=== PATIENT | female | born 1945 | race Caucasian/White ===

== ENCOUNTER → 2023-01-12 08:53 | Outpatient (CLI) | payer MEDICARE, SELFPAY ==
[2023-01-12 11:09] LABS: Add Manual Diff / Slide Review NO; Basophils Absolute Auto 100 /uL (0-100); Basophils Percent Auto 0.7 % (0-2); Eosinophils Absolute Auto 100 /uL (0-450); Eosinophils Percent Auto 1.8 % (2-4); Hematocrit 38.1 % (36-46); Hemoglobin 12.9 g/dL (12.0-16.0); Lymphocytes Absolute Auto 1700 /uL (1100-4500); Lymphocytes Percent Auto 22.5 % (25-40); Mean Corpuscular Volume 91.4 fL (80-100); Monocytes Absolute Auto 600 /uL (0-900); Monocytes Percent Auto 8.1 % (3-14); Neutrophils Absolute Auto 4900 /uL (1500-7000); Neutrophils Percent Auto 66.9 % (50-75); Platelet Count 220 X10^3/uL (150-400); Red Blood Cell Count 4.17 X10^6/uL (4.0-5.2); Red Cell Distribution Width 13.4 % (11.6-14.8); White Blood Cell Count 7.4 X10^3/uL (4.5-11.0)
[2023-01-12 11:28] LABS: BUN Creatinine Ratio 19.3 (6-22); Blood Urea Nitrogen 17 mg/dL (7-17); Calcium 9.2 mg/dL (8.4-10.2); Carbon Dioxide 28 mmol/L (22-32); Chloride 99 mmol/L (98-107); Estimated Glomerular Filt Rate > 60 mL/min (>60); Glucose 78 mg/dL (80-110); HEMOLYSIS < 15 (0-50); Potassium 4.6 mmol/L (3.4-5.1); Sodium 136 mmol/L (137-145)
== END ==
PROVIDERS: PCP Family Medicine; Referring Provider Orthopaedic Surgery; Visit Provider Orthopaedic Surgery
DX: Z01.818 Encounter for other preprocedural examination (principal); M25.561 Pain in right knee; Z01.812 Encounter for preprocedural laboratory examination
CPT/HCPCS: 36415; 80048; 85025; 93005

== ENCOUNTER 2023-02-11 06:25 | Day surgery (SDC) | payer MEDICARE, SELFPAY ==
[2023-02-03 08:52] VITALS: BMI 23.1
[2023-02-11] VITALS (13 sets, daily range): BP systolic 95–141; BP diastolic 57–80; PULSE 66–102; RESP 12–25; TEMP 36.2–36.6; O2SAT 92–100; BMI 23.1
--- NOTE | 2023-02-11 06:00 | DI.RAD.S_ITS ---
PROCEDURE: XR KNEE RT 1TO2V INDICATIONS: prosthesis placement TECHNIQUE: 2 view(s) of the knee acquired. COMPARISON: None. FINDINGS: Bones: Patient is status post knee joint arthroplasty. Hardware components are in expected positions. Visualized bony structures are intact. Soft tissues: Overlying postoperative changes are noted. IMPRESSION: Expected immediate postoperative appearance, status post total right knee arthroplasty. Dictated by: Jose F Lynn M.D. on 02/11/2023 at 10:01 Approved by: Jose F Lynn M.D. on 02/11/2023 at 10:01
[2023-02-11] MEDS: ACETAMINOPHEN 325 MG TABLET 975 MG PO (07:08)
[2023-02-11] MEDS: PREGABALIN 75 MG CAPSULE PO (07:08)
[2023-02-11] MEDS: CELECOXIB 200 MG CAPSULE PO (07:08)
[2023-02-11] MEDS: LACTATED RINGERS 1,000 ML 42 ML IV ×2 (07:09→08:24)
[2023-02-11 07:12] LABS: COVID19 -Nasal RAPID Negative (Negative)
--- NOTE | 2023-02-11 07:16 | PM.PREOP ---
Pre-operative Note COVID-19 COVID-19 status: Negative Result date/Date tested (Pos, Neg/Pending): 02/11/23 Interval Note History & Physical reviewed/Exam performed by Physician: Yes Changes to H&P: No
[2023-02-11] MEDS: TRANEXAMIC ACID 1,000 MG VIAL 1000 MG INJ (08:00)
[2023-02-11] MEDS: CEFAZOLIN 2 GM/100 ML PREMIX 100 ML IV ×3 (08:00→23:46)
--- NOTE | 2023-02-11 08:13 | SUR.OPER ---
Supine on padded OR bed. Pillow under head, arms secured on padded armboards <90 degree abduction. Safety belt across torso. Non-operative leg secured with tape over blanket over lower leg. Operative leg secured in De[employer] positioner. Foam padded brace at thigh of operative leg.
[2023-02-11] MEDS: BUPIVACAINE 0.25% (PF) VIAL 30 ML INJ (08:23)
[2023-02-11] MEDS: MORPHINE 4 MG/ML INJ INJ (08:25)
[2023-02-11] MEDS: BUPIVACAINE LIPOSOME 266 MG/20 ML VIAL INJ (08:25)
--- NOTE | 2023-02-11 09:24 | PM.OP.1 ---
Operative Date/Time/Diagnoses Date of procedure: 02/11/23 Time of procedure: 09:24 Pre-op diagnosis: Right knee osteoarthritis Post-op diagnosis: same Procedure & Clinicians Procedure: Right total knee replacement Same procedure as scheduled: Yes Indications: The patient has had progressively worsening right knee pain with radiographic changes consistent with arthritis. Non-operative management has failed and the patient has requested total knee replacement. The risks, benefits and alternatives to surgery were discussed with the patient prior to proceeding. Risks discussed included, but were not limited to, failure to relieve pain, stiffness, infection, nerve damage, deep venous thrombosis, pulmonary embolism, stroke, coma, heart attack, permanent paralysis and , as well as the potential need for eventual revision of the prosthetic. Surgeon: Dougie Robison Kiln Hand: Geni Reeves Click Yes if Unassisted: No Anesthesia Type: General, Spinal and Local Operative Notes Findings: Severe osteoarthritis particularly in the medial compartment. Closure Type: primary Specimen(s): none sent Prosthetic devices, grafts, tissues, transplants, or devices: Implants used in this procedure were manufactured by the [employer] and included the BCS II Journey total knee replacement with a size 4 right cobalt chromium femur, 3 right non porous tibial base plate, 9 mm cross-linked polyethylene tibial insert and a 35 mm oval Maryuri II patella. Applied: implant(s) Estimated Blood Loss (mL): 25 Blood products transfused: none Tourniquet time (min): 47 Procedure in detail: The patient was seen in the pre-operative area, where the patient identified the right knee as the operative site and this was marked with my initials. The patient received pre-operative antibiotics, and was taken to the operating room and placed on the operative table in the supine position. After satisfactory anesthesia, a horse race timer out was performed. The right leg was encircled with a tourniquet about the proximal thigh, and the leg was prepared from the toes to the tourniquet with ChloroPrep in the usual fashion and draped through sterile drapes. The leg was elevated and exsanguinated with Eschmark bandage and the tourniquet inflated to 250 mmHg pressure. The knee was approached through an approximately 15 cm incision centered over the patella and carried into the knee through a medial parapatellar arthrotomy. The anterior osteophytes and soft tissues were removed. The rotational landmarks of Pocahontas's line and the transepicondylar axis were marked on the femur with electrocautery, and intramedullary guide holes for the femur and tibia were created. The distal femoral cut was made in 6 degrees of valgus using the intramedullary guide at the primary cut setting. The proximal tibial cut was then made using the intramedullary guide, taking 9 mm of bone off the less involved side. The extension gap was checked and the rotation of the femoral component confirmed with the gap balancing system. The anterior, posterior and chamfer cuts were then made. The posterior osteophytes and soft tissues were then removed. The posterior capsule was injected with part of a mixture of 60 ml 0.25% Marcaine mixed with 20 ml Exparel and 4 mg of morphine for post-operative pain control. The remainder of this mixture was injected into the capsule and subcutaneous tissues during cement curing. The tibia was prepared with the rotation set by an extra medullary guide. Trial tibial and femoral components were then placed and the intercondylar notch cut through the femoral trial. Range of motion was 0-140 degrees, with good stability throughout the range. The patella was then cut to accommodate the patellar prosthetic. There was no need for a lateral release. The trials were then removed, and the femoral hole plugged with a bone plug. The bone was prepared with pulsatile lavage, and dried with a sponge. Cement was applied and the final prosthetics placed. Excess cement was removed during and after cement curing. After confirming there was no extruded cement posteriorly, the final tibial insert was placed. The knee was copiously irrigated and the tourniquet deflated. Hemostasis was obtained. The capsule was closed with interrupted # 2 polyester suture. The subcutaneous layer was closed with 3-0 Vicryl, and the skin with a running 3-0 V-Lock suture and Dermabond. An Aquacel Ag dressing was applied and the patient was taken to recovery having tolerated the procedure well. The services of a skilled diploma medical assistant were required during this procedure to provide retraction to protect vital structures, exposure and positioning of the patient. Without the assistance of Ms. Reeves, the procedure could not have proceeded in a safe, expedient fashion. Complications: none Post-operative Condition: stable Disposition: PACU Plan for aftercare: The patient will be maintained on a standard total knee replacement protocol with weight bearing as tolerated. The patient will receive aspirin and sequential compression devices for DVT prophylaxis. The patient will be discharged home when safe for the home environment.
--- NOTE | 2023-02-11 09:43 | SUR.PHASEI ---
Report called to
--- NOTE | 2023-02-11 10:38 | SUR.PHASEI ---
Patient transferred to the floor with her belongings bag. Report given to May. VS stable. IV patent. Right knee dressing CDI.
[2023-02-11] MEDS: LACTATED RINGERS 1,000 ML 100 ML IV (11:13)
[2023-02-11] MEDS: ACETAMINOPHEN 325 MG TABLET 650 MG PO ×3 (11:16→23:46)
[2023-02-11] MEDS: IBUPROFEN 600 MG TABLET PO ×3 (11:16→23:46)
--- NOTE | 2023-02-11 11:50 | PT.IIE ---
Current Diagnoses Unilateral primary osteoarthritis, right knee (02/11/23) Surgery Performed Operation Date: 02/11/23 07:45 Actual Procedures p Total Knee Arthroplasty(Right) - Dougie Robison MD Surgical History (Last Updated 02/03/23 @ 09:10 by Mayelin Turnre, RN) History of hysterectomy (1980) History of lumpectomy of left breast (2014) Hx of bilateral cataract extraction (~2015) Hx of colonoscopy with polypectomy (2021) Hx of colonoscopy with polypectomy (~2016) Status post removal of thyroid nodule (1966) Medical History (Last Updated 02/03/23 @ 09:10 by Mayelin Turner, RIGOBERTO) Breast cancer, left (2014) GERD (gastroesophageal reflux disease) HLD (hyperlipidemia) HTN (hypertension) Numbness and tingling of both feet (~2021) Osteoarthritis Physical Therapy Inpatient Evaluation/Re-Eval M1 PT/OT-IP Prior Functional Status Start: 02/11/23 11:52 Freq: NEEDED Status: Active Protocol: Document 02/11/23 11:20 DCW (Rec: 02/11/23 12:04 DCW [id number]) Medical Review Prior Functional Status Medical History Reviewed Yes Diet/Fluid Consistency Regular Communication WNL Mobility and Gait WNL Social History Household Members spouse Living Arrangements Apartment/Condo Number of Stairs To Enter/Railing? 3 VALERIE with bilateral railing Home Equipment Front Wheel Walker M2 PT-IP Current Condition Start: 02/11/23 11:52 Freq: NEEDED Status: Active Protocol: Document 02/11/23 11:20 DCW (Rec: 02/11/23 12:04 DCW [id number]) Physical Therapy Current Condition Current Condition Evaluation Date 02/11/23 Treatment Diagnosis R TKA Onset Date 02/11/23 M3 PT-IP Subjective Start: 02/11/23 11:52 Freq: NEEDED Status: Active Protocol: Document 02/11/23 11:20 DCW (Rec: 02/11/23 12:04 DCW [id number]) Subjective Physical Therapy Visit Type Type Initial Evaluation Visit Start Time 11:20 Visit Stop Time 11:50 Total Visit Minutes 30 Notes Pt awake and alert supine in bed, recently brought to floor following morning TKA. Pt agreeable and eager to participate in PT Physical Therapy Visit Comments Patient Comments My knee is pretty numb right now, I'm not having any pain. Therapy Pain Assessment Pain When Pain Assessed During Mobility Pain Present Pain Present Denied Pain M4 PT-IP Mobility and Gait Start: 02/11/23 11:52 Freq: NEEDED Status: Active Protocol: Document 02/11/23 11:20 DCW (Rec: 02/11/23 12:04 DCW [id number]) PT-Bed Mobility Assessment Supine to Sit Supine to Sit Independent Sit to Supine Sit to Supine Independent Scooting Scooting to Edge of Bed Independent Scooting Up and Down in Bed Independent PT-Transfer Assessment Sit to and From Stand Sit to and from Stand Standby Assistance Equipment Transfer Assistive Device Bed Rail,Front Wheeled Walker Orthotic/Prosthetic Devices or Brace: No Transfer Ability Level of Assist Standby Assistance Comments Mobility Comments SBA x1 due to slight light- headedness following surgery this morning, otherwise pt independent with movement Gait Assessment Gait Gait Assistance Required: Standby Assistance Distance (Feet) 250 Assistive Devices Assistive Device Gait Belt,Front Wheeled Walker Gait Deviations General Gait Pattern Antalgic,Decreased Stride Length Factors Limiting Gait Function Factors Limiting Gait Function Decreased Sensation Comments Gait Comments Pt displays slight antalgia and decreased stride length secondary to LE numbness, however still taking very good steps, kept FWW moving forward through entire ambulation distance in hallway . Stair Climbing Assessment Evaluation Level of Assist On Stairs Standby Assistance Devices Stair Climbing Assistive Devices Left Railing,Right Railing Technique/Endurance Stair Climbing Direction Ascend and Descend Stair Climbing Technique Step Over Step,Step to Step Number of Steps Climbed 3 Query Text: Comments Stair Climbing Comments Pt ascended steps with bilateral railing, step-over- step. Descending steps bilateral railing step-to pattern. PT-Balance Assessment Standing Balance and Reactions Static Standing Balance Ability Good Dynamic Standing Balance Ability Good M5 PT-IP Objective Assessments Start: 02/11/23 11:52 Freq: NEEDED Status: Active Protocol: Document 02/11/23 11:20 DCW (Rec: 02/11/23 12:04 DCW [id number]) Orientation Orientation/Cognition Level of Alertness Alert Orientation Name,Birthday,Month,Date,Year, Place,Situation Language Function Ability No Deficits Noted Safety Awareness Understands Safety Issues Memory Description No Deficits Noted Comments Able to repeat expected HEP from her one pre-hab appointment last week. Gross Range of Motion Upper Extremity ROM Assessment Within Functional Limits Lower Extremity ROM Assessment Right Impaired Impairments Pt demonstrates right knee ROM 0?-90? sitting EOB. Strength Comments Strength Comments Pt able to use quad to lift R LE both with SLR in bed and LAQ sitting EOB Sensation Assessment Sensation Gross Sensation Right LE Impaired Sensation Description Numbness Comments Sensation Comments Post-op numbness M6 PT-IP Treatment Start: 02/11/23 11:52 Freq: NEEDED Status: Active Protocol: Document 02/11/23 11:20 DCW (Rec: 02/11/23 12:04 DCW [id number]) Physical Therapy Treatment Exercises Exercises Ankle Pumps,Quad Sets,Straight Leg Raises M7 PT-IP Assessment and Plan Start: 02/11/23 11:52 Freq: NEEDED Status: Active Protocol: Document 02/11/23 11:20 DCW (Rec: 02/11/23 12:04 DCW [id number]) PT Summary Assessment and Plan Potential Rehabilitation Potential Excellent Status of Condition at Evaluation Stable Summary Impairments ROM,Strength,Gait,Activity Tolerance Assessment Summary Pt doing very well on day-of surgery, able to complete bed mobility and transfers largely independently, SBA only required due to slight light- headedness post-op. Pt demonstrated good quad control prior to standing and walking . Pt tolerated walking from room out into hallway and down to stairs, where she ascended /descended three steps SBA using railing, which will be her exact set-up at home to enter from her garage. Pt then able to return full distance to room and get back in to bed independently. Pt likely appropriate to discharge home when medically stable. Additionally, pt comfortable with current HEP obtained from pre-hab, no current questions or concerns. Pt left back in bed with ice and call-anders in reach, and in room. Goals Gait Goal Independent,Front Wheel Walker Gait Distance 300' Frequency of Treatment Frequency Of Treatment Twice a Day Treatment Plan Physical Therapy Treatment Plan Gait Training,Therapeutic Exercise,Balance Retraining, Post Op Education,Discharge Planning,Neuromuscular Re-ed Weight Bearing Status Weight Bearing Status Weight Bear as Tolerated Recommendations To Nursing Amount of Assist Needed Standby Assistance Discharge Recommendations PT Discharge Recommendations Home with Assistance Transportation Needs at Discharge Private Vehicle
--- NOTE | 2023-02-11 15:25 | PT.IPTN ---
Current Diagnoses Unilateral primary osteoarthritis, right knee (02/11/23) Surgery Performed Operation Date: 02/11/23 07:45 Actual Procedures p Total Knee Arthroplasty(Right) - Dougie Robison MD Physical Therapy Treatment Note M2 PT-IP Current Condition Start: 02/11/23 11:52 Freq: NEEDED Status: Active Protocol: Document 02/11/23 11:20 DCW (Rec: 02/11/23 12:04 DCW [id number]) Physical Therapy Current Condition Current Condition Evaluation Date 02/11/23 Treatment Diagnosis R TKA Onset Date 02/11/23 M3 PT-IP Subjective Start: 02/11/23 11:52 Freq: NEEDED Status: Active Protocol: Document 02/11/23 15:54 TS (Rec: 02/11/23 16:16 TS [id number]) Subjective Physical Therapy Visit Type Type Treatment Note Visit Start Time 15:25 Visit Stop Time 15:38 Total Visit Minutes 13 Physical Therapy Visit Comments Patient Comments Pt continues to report numbness in knee. Pain is 1/10 with mobility. Therapy Pain Assessment Pain When Pain Assessed During Mobility Pain Present Pain Present Pain Reported M4 PT-IP Mobility and Gait Start: 02/11/23 11:52 Freq: NEEDED Status: Active Protocol: Document 02/11/23 15:54 TS (Rec: 02/11/23 16:16 TS [id number]) PT-Bed Mobility Assessment Supine to Sit Supine to Sit Independent Sit to Supine Sit to Supine Independent Scooting Scooting to Edge of Bed Independent Scooting Up and Down in Bed Independent PT-Transfer Assessment Sit to and From Stand Sit to and from Stand Standby Assistance Equipment Transfer Assistive Device Bed Rail,Front Wheeled Walker Orthotic/Prosthetic Devices or Brace: No Comments Mobility Comments Pt is independent in supine to sit HOB flat with BUE support . Scoots to EOB with BUE support, no retroleaning. Sit to stand SBA w/BUE on FWW. In standing she reports some slight dizziness. Sit to supine Independent with BUE support scooting to HOB. Pt was left in room with call light nearby, in room. Gait Assessment Gait Gait Assistance Required: Standby Assistance Distance (Feet) 300 Assistive Devices Assistive Device Gait Belt,Front Wheeled Walker Orthotic/Prosthetic Devices or Brace: No Gait Deviations General Gait Pattern Antalgic,Decreased Stride Length Factors Limiting Gait Function Factors Limiting Gait Function Decreased Sensation Comments Gait Comments Pt ambulated ~300 ' in hallway and bakc to room SBA, demonstrates step thru gait with some antalgia. Stair Climbing Assessment Evaluation Level of Assist On Stairs Standby Assistance Devices Stair Climbing Assistive Devices Left Railing,Right Railing Technique/Endurance Stair Climbing Direction Ascend and Descend Stair Climbing Technique Step Over Step,Step to Step Number of Steps Climbed 6 Comments Stair Climbing Comments Pt ascended steps with bilateral railing, step-over- step. Descending steps bilateral railing step-to pattern. PT-Balance Assessment Sitting Balance and Reactions Static Sitting Balance Ability Normal Dynamic Sitting Balance Ability Normal Standing Balance and Reactions Static Standing Balance Ability Good Dynamic Standing Balance Ability Good Comments Other Balance Tests/Deviations/Treatment Pt stood ~ 5 secs no AD, felt : affected side would buckle. M5 PT-IP Objective Assessments Start: 02/11/23 11:52 Freq: NEEDED Status: Active Protocol: Document 02/11/23 11:20 DCW (Rec: 02/11/23 12:04 DCW [id number]) Orientation Orientation/Cognition Level of Alertness Alert Orientation Name,Birthday,Month,Date,Year, Place,Situation Language Function Ability No Deficits Noted Safety Awareness Understands Safety Issues Memory Description No Deficits Noted Comments Able to repeat expected HEP from her one pre-hab appointment last week. Gross Range of Motion Upper Extremity ROM Assessment Within Functional Limits Lower Extremity ROM Assessment Right Impaired Impairments Pt demonstrates right knee ROM 0?-90? sitting EOB. Strength Comments Strength Comments Pt able to use quad to lift R LE both with SLR in bed and LAQ sitting EOB Sensation Assessment Sensation Gross Sensation Right LE Impaired Sensation Description Numbness Comments Sensation Comments Post-op numbness M6 PT-IP Treatment Start: 02/11/23 11:52 Freq: NEEDED Status: Active Protocol: Document 02/11/23 15:54 TS (Rec: 02/11/23 16:16 TS [id number]) Physical Therapy Treatment Exercises Exercises Ankle Pumps,Quad Sets,Straight Leg Raises M7 PT-IP Assessment and Plan Start: 02/11/23 11:52 Freq: NEEDED Status: Active Protocol: Document 02/11/23 15:54 TS (Rec: 02/11/23 16:16 TS [id number]) PT Summary Assessment and Plan Potential Rehabilitation Potential Excellent Status of Condition at Evaluation Stable Summary Impairments ROM,Strength,Gait,Activity Tolerance Assessment Summary PT is independent with all bed mobility. She performed sit to stand SBA with BUE support on FWW, no retroleaning. She ambualted with a step thru gait and with good management of FWW. She performed stairs SBA x6 with BUE support on handrails, provided cues for sequencing. She reported some dizziness with ambulation and slight increase in pain this session. PT is recommending return home with assist from spouse as needed. Goals Gait Goal Independent,Front Wheel Walker Gait Distance 300' Frequency of Treatment Frequency Of Treatment Twice a Day Treatment Plan Physical Therapy Treatment Plan Gait Training,Therapeutic Exercise,Balance Retraining, Post Op Education,Discharge Planning,Neuromuscular Re-ed Weight Bearing Status Weight Bearing Status Weight Bear as Tolerated Recommendations To Nursing Amount of Assist Needed Standby Assistance Discharge Recommendations PT Discharge Recommendations Home with Assistance Transportation Needs at Discharge Private Vehicle
--- NOTE | 2023-02-11 18:05 | PC.NURSE ---
Pt arrived from PACU at 1000 a.m. A&OX3, VSS, afebrile on RA. She initially reports numbness down to toes from hips, but is able to wiggle toes. Over about 2 hours patient has return of full sensation down her legs. She is able able to stand and ambulate with steady gait and void in the BR. She is able to participate with PT and complete stairs. She continues to reports very minimal pain to her R knee 1-12/26. Cali wrap c/d/i, no swelling observed to surgical site. She is tolerating meals this afternoon and evening. LR at 100ml/hr. Continuous monitoring.
[2023-02-11] MEDS: LOSARTAN 25 MG TABLET PO (21:42)
[2023-02-11] MEDS: DOCUSATE 100 MG CAPSULE PO (21:42)
[2023-02-11] MEDS: ASPIRIN EC 81 MG TABLET PO (21:42)
[2023-02-11] MEDS: ATORVASTATIN 20 MG TABLET 40 MG PO (21:42)
[2023-02-12 00:13] VITALS: BP 117/59; PULSE 78; RESP 18; TEMP 36.3; O2SAT 96
[2023-02-12 05:15] VITALS: BP 139/68; PULSE 72; RESP 19; TEMP 36.4; O2SAT 95
[2023-02-12 06:03] LABS: Hematocrit 32.6 % (36-46); Hemoglobin 11.1 g/dL (12.0-16.0)
[2023-02-12] MEDS: IBUPROFEN 600 MG TABLET PO (06:04)
[2023-02-12] MEDS: ACETAMINOPHEN 325 MG TABLET 650 MG PO (06:04)
[2023-02-12] MEDS: PANTOPRAZOLE DR 20 MG TABLET PO (06:06)
--- NOTE | 2023-02-12 07:32 | PM.DS.1 ---
History of Present Illness History of Present Illness Date Patient Seen: 02/12/23 Time Patient Seen: 07:32 Chief complaint: Knee pain Narrative: The pain is [id number]. Denies fever or chills. No nausea or vomiting. Patient has been up out of bed working with physical therapy. Patient has assistance at home. Discharge Providers Provider Discharge Date: 02/12/23 Primary care physician: Yvan Araya MD Consults: 02/11/23 06:00 Consult to Anesthesiology Routine Comment: Consulting Provider: Anesthesiologist Reason for consultation: Regional block for post operative pain control 02/11/23 10:21 Consult to Discharge Planning Routine Comment: Consult to Physical Therapy Evaluate & Treat Comment: Physician Instructions: postop TKA protocol Discharge provider: Rajan Oconnor PA-C Summary Hospital Course Discharge Diagnosis: Right knee osteoarthritis Hospital Course: Right total knee replacement Same procedure as scheduled: Yes Indications: The patient has had progressively worsening right knee pain with radiographic changes consistent with arthritis. Non-operative management has failed and the patient has requested total knee replacement. The risks, benefits and alternatives to surgery were discussed with the patient prior to proceeding. Risks discussed included, but were not limited to, failure to relieve pain, stiffness, infection, nerve damage, deep venous thrombosis, pulmonary embolism, stroke, coma, heart attack, permanent paralysis and , as well as the potential need for eventual revision of the prosthetic. Surgeon: Dougie Robison Quality Control Microbiology Supervisor: Geni Reeves Click Yes if Unassisted: No Anesthesia Type: General, Spinal and Local Operative Notes Findings: Severe osteoarthritis particularly in the medial compartment. Closure Type: primary Specimen(s): none sent Prosthetic devices, grafts, tissues, transplants, or devices: Implants used in this procedure were manufactured by the [employer] and included the BCS II Journey total knee replacement with a size 4 right cobalt chromium femur, 3 right non porous tibial base plate, 9 mm cross-linked polyethylene tibial insert and a 35 mm oval Maryuri II patella. Applied: implant(s) Estimated Blood Loss (mL): 25 Blood products transfused: none Tourniquet time (min): 47 Patient admitted to the hospital for right total knee replacement. Patient consented to the same. Patient taken to the operating room on February 11, 2023. Patient underwent right total knee replacement. Patient back in her room recovering well as in stable condition. Patient will be maintained on standard total knee replacement protocol with weight-bearing as tolerated. Aspirin 81 mg b.i.d. for DVT prophylaxis. Patient will be discharged home today in stable condition after physical therapy. Exam Vital Signs (past 8 hours): - 02/12/23 00:13 02/12/23 05:15 Temperature 97.3 F L 97.5 F L Pulse Rate 78 72 Respiratory Rate 18 19 Blood Pressure 117/59 L 139/68 Pulse Oximetry 96 95 Oxygen Flow Rate 0 0 Oxygen Delivery Method Room Air Oxygen Flow Rate 0 Narrative Exam Narrative: Pleasant 77-year-old female resting comfortably in bed in no apparent distress. Right knee dressing is clean, dry and intact. Motor functions intact bilateral lower extremities. Sensation grossly intact to light touch bilateral lower extremities Const General: cooperative, healthy appearing and comfortable Nutritional Appearance: average body habitus Resp Effort & Inspection: normal respiratory effort and able to speak in complete sentences Objective Labs 02/12/23 05:45 Labs: Laboratory Results - last 24 hr 02/12/23 05:45 Hgb 11.1 L Hct 32.6 L PFSH Medical History Breast cancer, left (2014) GERD (gastroesophageal reflux disease) HLD (hyperlipidemia) HTN (hypertension) Numbness and tingling of both feet (~2021) Osteoarthritis Surgical History History of hysterectomy (1980) History of lumpectomy of left breast (2014) Hx of bilateral cataract extraction (~2015) Hx of colonoscopy with polypectomy (2021) Hx of colonoscopy with polypectomy (~2016) Status post removal of thyroid nodule (1966) Social History household members: spouse Smoking Status: Former smoker alcohol intake: current Discharge Assessment & Plan Assessment and Plan Assessment: Patient progressing as expected status post right total knee replacement Plan of Treatment: Multimodal pain management Weight-bearing as tolerated Aspirin 81 mg b.i.d. for DVT prophylaxis Discharge home today after physical therapy. Discharge Plan Discharge Plan Patient Disposition: Home Discharge orders & Medications Discharge Orders: Discharge (Order); Ordered 02/12/23 Ordered By: Rajan Oconnor Prescriptions: New acetaminophen 325 mg Tablet 650 mg PO Q6H Qty: 60 0RF aspirin 81 mg Tablet,Delayed Release (Dr/Ec) 81 mg PO BID Qty: 60 0RF ibuprofen 600 mg Tablet 600 mg PO Q6H Qty: 60 0RF oxycodone 5 mg Tablet 5 mg PO Q3H PRN (Reason: Pain, Moderate (4-6)) Qty: 40 0RF Continued losartan 25 mg Tablet 25 mg PO BEDTIME rosuvastatin 20 mg Tablet 20 mg PO BEDTIME omeprazole 20 mg Tablet,Delayed Release (Dr/Ec) 20 mg PO DAILY Discontinued Excedrin Extra Strength 250-250-65 mg Tablet 2 tab PO DAILY naproxen sodium [Aleve] 220 mg Capsule 440 mg PO DAILY Follow up/Referrals: Dougie Robison MD [Physician] - (Two weeks as scheduled) Yvan Araya MD [Primary Care Provider] - Diet/Activity/Treatments Diet: Diet as Tolerated Activity: Weight-bearing as tolerated Skin/Wound/Dressing Care Report to your healthcare provider any signs of infection, such as:: chills, fever, night sweats, increased pain, unusual drainage and unusual redness Dressing: Keep dressing clean and dry Visit Report/Discharge Packet Instructions: DI for Knee Replacement Stand Alone Forms: Patient Portal/API, Surgery Discharge Discharge Data Primary Care Provider: Yvan Araya Attending Provider: Dougie Robison Quality VTE Deep Vein Thrombosis/Pulmonary Embolism Present on Admission: No
--- NOTE | 2023-02-12 08:03 | PT.IPTN ---
Current Diagnoses Unilateral primary osteoarthritis, right knee (02/11/23) Surgery Performed Operation Date: 02/11/23 07:45 Actual Procedures p Total Knee Arthroplasty(Right) - Dougie Robison MD Physical Therapy Treatment Note M2 PT-IP Current Condition Start: 02/11/23 11:52 Freq: NEEDED Status: Discharge Protocol: Document 02/12/23 07:42 SP (Rec: 02/12/23 16:14 SP [id number]) Physical Therapy Current Condition Current Condition Evaluation Date 02/11/23 Treatment Diagnosis R TKA Onset Date 02/11/23 M3 PT-IP Subjective Start: 02/11/23 11:52 Freq: NEEDED Status: Discharge Protocol: Document 02/12/23 07:42 SP (Rec: 02/12/23 16:14 SP [id number]) Subjective Physical Therapy Visit Type Type Treatment Note Visit Start Time 07:42 Visit Stop Time 08:03 Total Visit Minutes 21 Notes in room, completed caregiver training donning gait belt and SBA support, cued posted for give pt feedback for proper knee bend heel to walking for normal phases. Number of PCA Visits 1 Physical Therapy Visit Comments Patient Comments Pt willing to work with therapy. Therapy Pain Assessment Pain When Pain Assessed During Mobility Pain Present Pain Present Pain Reported Location R knee Scale Used sore over surgical R anterior knee Pain Behaviors Facial Grimacing Pain Management Techniques Distraction,Modification of Treatment,Re-positioning, Timing of Activity with Medications M4 PT-IP Mobility and Gait Start: 02/11/23 11:52 Freq: NEEDED Status: Discharge Protocol: Document 02/12/23 07:42 SP (Rec: 02/12/23 16:14 SP [id number]) PT-Bed Mobility Assessment Supine to Sit Supine to Sit Independent Scooting Scooting to Edge of Bed Independent PT-Transfer Assessment Sit to and From Stand Sit to and from Stand Standby Assistance Equipment Transfer Assistive Device Gait Belt,Front Wheeled Walker Orthotic/Prosthetic Devices or Brace: No Transfers Transfer Destination Chair Transfer Technique pt ambulated using FWW Transfer Ability Level of Assist Standby Assistance,Use of Upper Extremities Comments Mobility Comments PCA instructed RLE post op ex: AP, HS using strap support up to 85 deg, QS 5 reps each, SAQ stronger lift as reps progressed. Pt I with bed mob. STS SBA, gait around room w/ FWW. Cued R knee flexion and heel toe, BUE WB as needed for decrease lean on FWW. 40 ft across room and back, sink back to chair, sBA, step over step patterning Pt returned to chair with all needs and call light in reach with in room. PCA updated communication board and notified nursing/ care mgt ok to return home with spouse to assist her as needed when medically cleared. ALready cleared stair mgt yesterday and pt feeling good about them . Set up with outpt therapy next week already. Gait Assessment Gait Gait Assistance Required: Standby Assistance Distance (Feet) 40 Able to Maintain Weight Bearing Status Yes During Gait Assistive Devices Assistive Device Gait Belt,Front Wheeled Walker Orthotic/Prosthetic Devices or Brace: No Gait Deviations General Gait Pattern Antalgic,Decreased Stride Length,Decreased Feet Clearance Factors Limiting Gait Function Factors Limiting Gait Function Decreased Activity Tolerance, Decreased Strength,Limited Range of Motion,Pain Comments Gait Comments see mobility comments PT-Balance Assessment Sitting Balance and Reactions Static Sitting Balance Ability Normal Dynamic Sitting Balance Ability Normal Standing Balance and Reactions Static Standing Balance Ability Good Dynamic Standing Balance Ability Good Device Used FWW M5 PT-IP Objective Assessments Start: 02/11/23 11:52 Freq: NEEDED Status: Discharge Protocol: Document 02/11/23 11:20 DCW (Rec: 02/11/23 12:04 DCW [id number]) Orientation Orientation/Cognition Level of Alertness Alert Orientation Name,Birthday,Month,Date,Year, Place,Situation Language Function Ability No Deficits Noted Safety Awareness Understands Safety Issues Memory Description No Deficits Noted Comments Able to repeat expected HEP from her one pre-hab appointment last week. Gross Range of Motion Upper Extremity ROM Assessment Within Functional Limits Lower Extremity ROM Assessment Right Impaired Impairments Pt demonstrates right knee ROM 0?-90? sitting EOB. Strength Comments Strength Comments Pt able to use quad to lift R LE both with SLR in bed and LAQ sitting EOB Sensation Assessment Sensation Gross Sensation Right LE Impaired Sensation Description Numbness Comments Sensation Comments Post-op numbness M6 PT-IP Treatment Start: 02/11/23 11:52 Freq: NEEDED Status: Discharge Protocol: Document 02/12/23 07:42 SP (Rec: 02/12/23 16:14 SP [id number]) Physical Therapy Treatment Exercises Exercises Ankle Pumps,Quad Sets,Heel Slides,Short Arc Quads,Seated Knee Flexion/Extension Knee ROM Measurement approx 85 deg w/ strap support M7 PT-IP Assessment and Plan Start: 02/11/23 11:52 Freq: NEEDED Status: Discharge Protocol: Document 02/12/23 07:42 SP (Rec: 02/12/23 16:14 SP [id number]) PT Summary Assessment and Plan Potential Rehabilitation Potential Excellent Status of Condition at Evaluation Stable Summary Impairments ROM,Strength,Gait,Activity Tolerance Progress Towards Goals Progressing Toward Goals,Slow Progress due to Pain,Slow Progress due to Activity Tolerance Assessment Summary Pt I bed mob, improved AAROM R knee approx 85 deg, all mobility SBA w/ FWW, cues for R knee flex/ heel toe during gait and not position pillow under knee supine to allow extension ROM. Pt is ok return home when medically cleared with spouse assist her as needed, set up with outpt therapy next week. Goals Gait Goal Independent,Front Wheel Walker Gait Distance 300' Frequency of Treatment Frequency Of Treatment Twice a Day Treatment Plan Physical Therapy Treatment Plan Gait Training,Therapeutic Exercise,Balance Retraining, Post Op Education,Discharge Planning,Neuromuscular Re-ed Other Recommendations and Next Treatment post op ex, further distance Focus gait, stair mgt ROM/ strength. Weight Bearing Status Weight Bearing Status Weight Bear as Tolerated Recommendations To Nursing Amount of Assist Needed Standby Assistance Discharge Recommendations PT Discharge Recommendations Home with Assistance, Outpatient PT Equipment Needed for Home Before has FWW Discharge Transportation Needs at Discharge Private Vehicle
[2023-02-12 08:07] VITALS: BP 130/69; RESP 17; O2SAT 100
[2023-02-12] MEDS: ASPIRIN EC 81 MG TABLET PO (08:56)
[2023-02-12] MEDS: DOCUSATE 100 MG CAPSULE PO (08:56)
[2023-02-12] MEDS: OXYCODONE IR 5 MG TABLET PO (09:00)
--- NOTE | 2023-02-12 10:26 | PC.NURSE ---
Pt is A&OX4, VSS,afebrile on RA. She tolerates breakfast well and is cleared by CAREER AND TRANSITION TEACHER for discharge home this a.m. as well as by ortho PA this a.m. She reports pain to R knee 5/10 and per request is medicated with PRN oxycodone for transport home. She and spouse at bedside verbalize understanding of medications, site care, activity restrictions, as well as s/sx of infection/complication and follow up appointment. She is escorted via w/ch by RN to private vehicle with this a.m. for discharge with all of her personal belongings at approximately 0950 this a.m.
--- NOTE | 2023-02-12 10:29 | CM.DANOTE ---
Discharge Planning/Care Management CM Discharge Assessment Start: 02/12/23 10:26 Manisha: Status: Active Protocol: Document 02/12/23 10:26 LOGAN (Rec: 02/12/23 10:29 LOGAN [id number]) Discharge Planning Assessment Assigned Toll Test Desk Worker DEEP Carter DPOA/Assigned Designee Name Fredo Lizarraga, spouse Contact Information [phone] Advance Directives? No History Provided By Patient Prior Living Arrangements Apartment/Condo Household Members spouse Type of transporation used prior to Drives own vehicle admit Independent with ADL's Yes Is patient alert and oriented? Yes Patient/Family Preference OP PT Therapy Barriers to Discharge No Comment 77 yo female, status post right total knee replacement. Patient planned for return home w.spouse to assist and outpatient PT and has been cleared by therapies for this plan Plan: Discharge home w/spouse, close outpatient follow up No CM needs identified Discharge Plan Home Transportation Arrangement Family Referrals Initiated None needed
== END 2023-02-12 09:50 | disposition home or self-care (01) ==
LOC: OR 06:25 → AC 06:26
PROVIDERS: PCP Family Medicine; Referring Provider Orthopaedic Surgery; Visit Provider Orthopaedic Surgery
PROC: 0SRC0JZ Replacement of Right Knee Joint with Synthetic Substitute, Open Approach (ICD-10-PCS; CPT 27447; principal; 2023-02-11 07:45)
DX: M17.11 Unilateral primary osteoarthritis, right knee (principal); Z20.822 Contact with and (suspected) exposure to COVID-19; I10 Essential (primary) hypertension
CPT/HCPCS: 27447; 36415; 73560; 85014; 85018; 87635; 97110; 97161; 97530; C1776; C9803; C9290; J0690; J2250; J2270; J2274; J2704; J3010; J3490